=== PATIENT | male | born 1955 | race African-American/Black ===

== ENCOUNTER 2017-07-29 03:50 | Emergency (ER) | payer MEDICAID ==
[~2017-07-29] VITALS: Ht 172.7 cm; Wt 81.6 kg
[~2017-07-29 03:50] MED LIST: ALBU0.633 IH; ALBU2.5V13 NEB; ASPI-605 PO; ATEN50TA PO; ATOR40TA PO; GEMF600T3 PO; HYDR-548 PO; INSU10VI3 SQ; LOSA50TA3 PO; METF10002 PO; NICO1PAT28 TD; NITR0.4T48 SL
--- NOTE | 2017-07-29 04:15 | NUR ---
PT BBRA WITH C/O ABD PAIN X 36 HRS. PT STATES "NO BM X 36 HOURS WITH PAIN 10/10." PT AAOX4. SKIN WNL AND WARM TO TOUCH. RESP EVEN AND UNLABORED. NO S/S OF ACUTE DISTRESS NOTED. DISTENDED AND RIGID ABD NOTED. PT GUARDED STOMACH UPON PALPATION. URINE SPECIMEN COLLECTED. PT GOWNED AND PLACED ON MONITOR AND POX. AWAITING MD FOR EVAL.
[2017-07-29] MEDS ORDERED: MORPHINE SULFATE INJ 4 MG/ML DISP.SYRIN ONE (04:18)
[2017-07-29] MEDS ORDERED: MORPHINE SULFATE INJ 2 MG/ML DISP.SYRIN IV ONE (04:30)
[2017-07-29] MEDS ORDERED: IV NS 0.9% 500 ML BAG IV ONE (04:30)
--- NOTE | 2017-07-29 04:30 | NUR ---
PT TO CT
--- NOTE | 2017-07-29 04:35 | NUR ---
PULLED 8 MG OF MORPHINE FROM OMNICELL. 6 MG OF MORPHINE GIVEN. MEDICATION WASTE VERIFIED BY ENOC GIBSON.
--- NOTE | 2017-07-29 04:36 | NUR ---
ENOC FAIR PULLED TWO VIALS OF MORPHINE 4mg TO OBTAIN MORPHINE 6mg DOSE ORDERED BY PHYSICIAN. WITNESSED MANJULA WASTE 2mg OF MORPHINE. COUNT DISCREPANCY CORRECTED IN OMNICELL.
[2017-07-29 04:46] LABS: BASOPHILS % (AUTO) 0.4 % (0.0-2.0); EOSINOPHILS # (AUTO) 0.1 /CMM (0.0-0.7); EOSINOPHILS % (AUTO) 1.3 % (0.0-6.0); HEMATOCRIT 50 % (39-51); HEMOGLOBIN 16.7 g/dL (13.5-17.5); LYMPHOCYTES # (AUTO) 2.8 /CMM (0.8-4.8); MEAN CORPUSCULAR HEMOGLOBIN 31 PG (26.0-33.0); MEAN CORPUSCULAR HGB CONC 34 g/dl (31.0-36.0); MEAN CORPUSCULAR VOLUME 93 fL (80-96); MONOCYTES # (AUTO) 0.7 /CMM (0.1-1.30); MONOCYTES % (AUTO) 6.4 % (2.0-12.0); NEUTROPHILS # (AUTO) 7.4 /CMM (1.8-8.9); NEUTROPHILS % (AUTO) 66.9 % (43.0-81.0); PLATELET COUNT (AUTO) 320 /CMM (150-450); RDW COEFFICIENT OF VARIATION 14.3 (11.5-15.0); RED BLOOD CELL COUNT(AUTO) 5.35 MIL/uL (4.5-6.0); WHITE BLOOD COUNT (AUTO) 11.1 K/uL (4.3-11.0)
--- NOTE | 2017-07-29 04:48 | NUR ---
PT FROM CT
[2017-07-29 04:49] LABS: APPEARANCE,URINE CLEAR (CLEAR); BILIRUBIN,URINE NEGATIVE (NEGATIVE); BLOOD, URINE TRACE-INTA Ery/uL (NEGATIVE); COLOR,URINE YELLOW (YELLOW); KETONES,URINE NEGATIVE (NEGATIVE); LEUKOCYTE ESTERASE ,URINE NEGATIVE (NEGATIVE); NITRITE, URINE NEGATIVE (NEGATIVE); PROTEIN,URINE 2+ mg/dl (NEGATIVE); UGLUCOSE NEGATIVE (NEGATIVE); UROBILINOGEN,URINE 0.2 EU/dL (0.2)
[2017-07-29 05:05] LABS: ALANINE AMINOTRANSFERASE 29 U/L (12-78); ALBUMIN 4.1 g/dL (3.4-5.0); ALKALINE PHOSPHATASE 80 U/L (46-116); ASPARTATE AMINOTRANSFERASE 19 U/L (15-37); BILIRUBIN,DIRECT 0.1 mg/dL (0.0-0.2); BILIRUBIN,TOTAL 0.7 mg/dL (0.2-1.0); CALCIUM, SERUM 9.9 mg/dL (8.5-10.1); CARBON DIOXIDE 25 mmol/L (21-32); CHLORIDE 101 mmol/L (98-107); CREATININE 1.6 mg/dL (0.6-1.3); GLUCOSE 190 mg/dL (74-106); INR 0.96 (0.87-1.13); LIPASE 148 U/L (73-393); POTASSIUM 4.4 mmol/L (3.5-5.1); SODIUM SERUM 138 mmol/L (136-145); TOTAL PROTEIN, SERUM 8.6 g/dL (6.4-8.2); UREA NITROGEN, BLOOD 14 mg/dL (7-18)
[2017-07-29 05:07] LABS: BACTERIA,URINE None seen /HPF (None Seen); MUCUS,URINE Rare /LPF (None Seen); SQUAMOUS EPITHELIAL CELL,UR Few /HPF (None Seen); TROPONIN I < 0.017 ng/mL (0.00-0.056); WBC,URINE 0-2 /HPF (0-3)
--- NOTE | 2017-07-29 05:08 | NUR ---
Patient is resting comfortably in bed with eyes closed. Easily aroused. VSS
[2017-07-29] MEDS ORDERED: BISACODYL SUPP (10 MG) 10 MG/SUPP.RECT SUPP.RECT RC ONE ×2 (05:30)
--- NOTE | 2017-07-29 06:00 | NUR ---
pt states " i had a bm and feel much better". pt ready for dc
[2017-07-29 06:04] VITALS: BP 142/87
--- NOTE | 2017-07-29 06:06 | NUR ---
Patient discharged to home in stable condition. Written and verbal after care instructions and Rx given. Patient verbalizes understanding of instruction.IV removed. Catheter intact and site benign. Pressure and 4x4 applied to site. No bleeding noted.
== END 2017-07-29 06:06 | disposition home or self-care (01) ==
LOC: ER 03:52
DX: K59.00 Constipation, unspecified (principal); E11.51 Type 2 diabetes mellitus with diabetic peripheral angiopathy without gangrene; E78.5 Hyperlipidemia, unspecified; I10 Essential (primary) hypertension; I25.10 Atherosclerotic heart disease of native coronary artery without angina pectoris; F10.10 Alcohol abuse, uncomplicated; F17.200 Nicotine dependence, unspecified, uncomplicated; Z79.4 Long term (current) use of insulin; Z79.82 Long term (current) use of aspirin
CPT/HCPCS: 36415; 71045-TC; 80048-TC; 80076-TC; 81000-TC; 83690-TC; 84484-TC; 85025-TC; 85730-TC; A4606; J2270; J7030; J7040; Z7610

== ENCOUNTER 2018-01-18 17:32 | Emergency (ER) | payer BC, OTHER ==
[~2018-01-18] VITALS: Ht 167.6 cm; Wt 98.4 kg
[~2018-01-18 17:32] MED LIST changes: -METF10002 PO; +METF10004 PO
--- NOTE | 2018-01-18 17:35 | NUR ---
PT BIBRA FROM HOME TO ER BED 09. PT IS AAO, C/O GENERALIZED WEAKNESS AND DIZZINESS FOR 3 DAYS NOW AFTER GETTING DISCHARGE AT ANOTHER HOSPITAL. PT WAS ADMITTED FOR HIGH BLOOD PRESSURE. GOWNED AND PLACED ON MONITOR. AWAITING MD MEDEROS.
--- NOTE | 2018-01-18 18:00 | NUR ---
IV LINE STARTED BLOOD DRAWN AND SENT TO LAB.
--- NOTE | 2018-01-18 18:04 | NUR ---
CHANDA NORWOOD AT BEDSIDE FOR EVAL.
[2018-01-18 18:29] LABS: BASOPHILS # (AUTO) 0.1 /CMM (0.0-0.2); BASOPHILS % (AUTO) 1.3 % (0.0-2.0); EOSINOPHILS % (AUTO) 2.9 % (0.0-6.0); HEMATOCRIT 47 % (39-51); HEMOGLOBIN 15.8 g/dL (13.5-17.5); LYMPHOCYTES # (AUTO) 2.6 /CMM (0.8-4.8); LYMPHOCYTES % (AUTO) 45.4 % (20.0-44.0); MEAN CORPUSCULAR HEMOGLOBIN 31 PG (26.0-33.0); MEAN CORPUSCULAR HGB CONC 34 g/dl (31.0-36.0); MEAN CORPUSCULAR VOLUME 92 fL (80-96); MONOCYTES # (AUTO) 0.4 /CMM (0.1-1.30); MONOCYTES % (AUTO) 6.8 % (2.0-12.0); NEUTROPHILS # (AUTO) 2.5 /CMM (1.8-8.9); NEUTROPHILS % (AUTO) 43.6 % (43.0-81.0); PLATELET COUNT (AUTO) 274 /CMM (150-450); RDW COEFFICIENT OF VARIATION 13.1 (11.5-15.0); RED BLOOD CELL COUNT(AUTO) 5.11 MIL/uL (4.5-6.0); WHITE BLOOD COUNT (AUTO) 5.8 K/uL (4.3-11.0)
[2018-01-18] MEDS ORDERED: IV NS 0.9% 500 ML BAG IV ONE (18:30)
[2018-01-18 18:43] LABS: INR 0.87 (0.85-1.15)
[2018-01-18 18:46] LABS: ALANINE AMINOTRANSFERASE 37 U/L (12-78); ALBUMIN 3.5 g/dL (3.4-5.0); ALKALINE PHOSPHATASE 89 U/L (46-116); ASPARTATE AMINOTRANSFERASE 15 U/L (15-37); BILIRUBIN,DIRECT 0.1 mg/dL (0.0-0.2); BILIRUBIN,TOTAL 0.3 mg/dL (0.2-1.0); CALCIUM, SERUM 8.9 mg/dL (8.5-10.1); CARBON DIOXIDE 29 mmol/L (21-32); CHLORIDE 103 mmol/L (98-107); CREATININE 1.4 mg/dL (0.6-1.3); GLUCOSE 246 mg/dL (74-106); POTASSIUM 3.5 mmol/L (3.5-5.1); SODIUM SERUM 137 mmol/L (136-145); TOTAL PROTEIN, SERUM 7.4 g/dL (6.4-8.2)
[2018-01-18 18:57] LABS: UREA NITROGEN, BLOOD 10 mg/dL (7-18)
[2018-01-18 19:04] LABS: TROPONIN I < 0.017 ng/mL (0.00-0.056)
--- NOTE | 2018-01-18 19:13 | NUR ---
REPORT TO BARBI STUBBS FOR MARLEN.
[2018-01-18 20:05] LABS: BAND % (MANUAL) 3 % (0.0-5.0); LYMPHOCYTES % (MANUAL) 17 % (16-48); MONOCYTES % (MANUAL) 5 % (0-11.0); NEUTROPHILS % (MANUAL) 74 (42-76); REACTIVE LYMPHOCYTES 1 % (0-0)
[2018-01-18 20:29] LABS: APPEARANCE,URINE Clear (CLEAR); BILIRUBIN,URINE Negative (NEGATIVE); BLOOD, URINE Negative Ery/uL (NEGATIVE); COLOR,URINE Yellow (YELLOW); KETONES,URINE Negative (NEGATIVE); LEUKOCYTE ESTERASE ,URINE Negative (NEGATIVE); NITRITE, URINE Negative (NEGATIVE); PH,URINE 5.5 (5.0-8.0); UGLUCOSE 500 MG/DL mg/dL (NEGATIVE); UROBILINOGEN,URINE 0.2 EU/dL (0.2)
[2018-01-18 20:50] LABS: PROTEIN,URINE >300 mg/dl (NEGATIVE)
--- NOTE | 2018-01-18 20:54 | NUR ---
PT RESTING COMFORTABLY WITH EYES CLOSED. EASILY AROUSED. VSS. NAD. STABLE CONDITION
--- NOTE | 2018-01-18 21:48 | NUR ---
PT AMBULATED TO BATHROOM WITH STEADY GAIT. NAD.VSS. STABLE CONDITION
--- NOTE | 2018-01-18 22:05 | NUR ---
Patient discharged to home in stable condition. Written and verbal after care instructions given. Patient verbalizes understanding of instruction. IV removed. Catheter intact and site benign. Pressure and 4x4 applied to site. No bleeding noted. AMBULATED WITH STEADY GAIT UPON DC. INFORMED NOT TO OPERATE OR DRIVE HEAVY MACHINERY
[2018-01-18 22:06] VITALS: BP 127/78
== END 2018-01-18 22:07 | disposition home or self-care (01) ==
LOC: ER 17:33
DX: R42 Dizziness and giddiness (principal); I73.9 Peripheral vascular disease, unspecified; F17.200 Nicotine dependence, unspecified, uncomplicated; F10.10 Alcohol abuse, uncomplicated; I10 Essential (primary) hypertension; E78.5 Hyperlipidemia, unspecified; E11.9 Type 2 diabetes mellitus without complications; F41.9 Anxiety disorder, unspecified; Y90.9 Presence of alcohol in blood, level not specified; Z79.82 Long term (current) use of aspirin; Z79.4 Long term (current) use of insulin
CPT/HCPCS: 36415; 71045-TC; 80048-TC; 80076-TC; 81000-TC; 84484-TC; 85025-TC; 85730-TC; A4606; J7040; Z7610

== ENCOUNTER 2020-10-05 22:02 | Emergency (ER) | payer OTHER ==
[~2020-10-05] VITALS: Ht 167.6 cm; Wt 98.4 kg
[~2020-10-05 22:02] MED LIST changes: -GEMF600T3 PO; +GEMF600T90 PO; +HYDR-4354 PO; -HYDR-548 PO; +METF-442 PO; -METF10004 PO
--- NOTE | 2020-10-05 22:03 | NUR ---
BIBRA60 FROM HOME C/O CP, SOB AND HIGH BP READING ON SCENE (190/90) PER RA, BS 140. PMD RECENTLY SWITCHED METOPROLOL TO CARVEDILOL YESTERDAY, PT AAOX4, -SOB, NOT IN ACUTE DISTRES, VSS, PENDING ER PROVIDER GATITO
[2020-10-05 22:36] LABS: BASOPHILS # (AUTO) 0.1 /CMM (0.0-0.2); BASOPHILS % (AUTO) 0.8 % (0.0-2.0); EOSINOPHILS % (AUTO) 2.7 % (0.0-6.0); HEMATOCRIT 44 % (39-51); HEMOGLOBIN 14.6 g/dL (13.5-17.5); LYMPHOCYTES # (AUTO) 2.6 /CMM (0.8-4.8); LYMPHOCYTES % (AUTO) 36.9 % (20.0-44.0); MEAN CORPUSCULAR HGB CONC 33 g/dl (31.0-36.0); MEAN CORPUSCULAR VOLUME 95 fL (80-96); MONOCYTES # (AUTO) 0.6 /CMM (0.1-1.30); MONOCYTES % (AUTO) 8.8 % (2.0-12.0); NEUTROPHILS # (AUTO) 3.5 /CMM (1.8-8.9); NEUTROPHILS % (AUTO) 50.8 % (43.0-81.0); PLATELET COUNT (AUTO) 322 /CMM (150-450); RED BLOOD CELL COUNT(AUTO) 4.62 MIL/uL (4.5-6.0)
[2020-10-05 22:46] LABS: CALCIUM, SERUM 8.6 mg/dL (8.5-10.1); CARBON DIOXIDE 32 mmol/L (21-32); CHLORIDE 102 mmol/L (98-107); CREATININE 1.8 mg/dL (0.6-1.3); GLUCOSE 133 mg/dL (74-106); POTASSIUM 3.9 mmol/L (3.5-5.1); SODIUM SERUM 138 mmol/L (136-145); UREA NITROGEN, BLOOD 16 mg/dL (7-18)
[2020-10-05 22:58] LABS: ALANINE AMINOTRANSFERASE 21 U/L (12-78); ALBUMIN 3.2 g/dL (3.4-5.0); ALKALINE PHOSPHATASE 60 U/L (46-116); ASPARTATE AMINOTRANSFERASE 18 U/L (15-37); B-TYPE NATRIURETIC PEPTIDE 69 PG/ML (0-125); BILIRUBIN,DIRECT 0.1 mg/dL (0.0-0.2); BILIRUBIN,TOTAL 0.4 mg/dL (0.2-1.0); TOTAL PROTEIN, SERUM 7.1 g/dL (6.4-8.2)
[2020-10-06 00:13] VITALS: BP 154/82
--- NOTE | 2020-10-06 00:13 | NUR ---
Patient discharged to home in stable condition. Written and verbal after care instructions given. Patient verbalizes understanding of instruction. IV removed. Catheter intact and site benign. Pressure and 4x4 applied to site. No bleeding noted.
== END 2020-10-06 00:13 | disposition home or self-care (01) ==
LOC: ER 22:02
DX: I10 Essential (primary) hypertension (principal); T50.905A Adverse effect of unspecified drugs, medicaments and biological substances, initial encounter; R06.00 Dyspnea, unspecified; E78.5 Hyperlipidemia, unspecified; E11.9 Type 2 diabetes mellitus without complications; F17.200 Nicotine dependence, unspecified, uncomplicated; Z86.73 Personal history of transient ischemic attack (TIA), and cerebral infarction without residual deficits; Z98.890 Other specified postprocedural states; Z79.899 Other long term (current) drug therapy; Z79.4 Long term (current) use of insulin; Z79.82 Long term (current) use of aspirin; Y92.89 Other specified places as the place of occurrence of the external cause
CPT/HCPCS: 36415; 71045-TC; 80048-TC; 80076-TC; 83880; 84484-TC; 85025-TC; 85730-TC

== ENCOUNTER 2020-11-01 14:15 | Inpatient (IN) | payer OTHER ==
[~2020-11-01] VITALS: Ht 167.6 cm; Wt 122.5 kg
[2020-11-01] MEDS ORDERED: NITROGLYCERIN 0.4 MG/TAB BOTTLE SL ONE (14:30)
[2020-11-01] MEDS ORDERED: ASPIRIN 325 MG TABLET PO ONE (14:30)
--- NOTE | 2020-11-01 14:30 | NUR ---
THE PATIENT BIB HIS FRIEND FOR C/O DIZZINESS AND CHEST PRESSURE SINCE 3 DAYS AGO, BILATERAL LEG PAIN SINCE HE FELL DOWN 3 DAYS AGO WHILE DIZZY. THE PATIENT RATES PAINS 10/10. IN ROOM AIR AND DENIES SOB. RESPIRATION REGULAR AND UNLABORED. ATTACHED TO THE MONITOR.
[2020-11-01] MEDS ORDERED: ASPIRIN 325 MG TABLET ONE (14:36)
[2020-11-01] MEDS ORDERED: NITROGLYCERIN 0.4 MG/TAB BOTTLE ONE (14:36)
[2020-11-01 14:38] LABS: BASOPHILS # (AUTO) 0.1 /CMM (0.0-0.2); EOSINOPHILS % (AUTO) 1.6 % (0.0-6.0); HEMATOCRIT 44 % (39-51); HEMOGLOBIN 14.5 g/dL (13.5-17.5); LYMPHOCYTES # (AUTO) 2.2 /CMM (0.8-4.8); LYMPHOCYTES % (AUTO) 29.4 % (20.0-44.0); MEAN CORPUSCULAR HGB CONC 33 g/dl (31.0-36.0); MEAN CORPUSCULAR VOLUME 95 fL (80-96); MONOCYTES # (AUTO) 0.6 /CMM (0.1-1.30); NEUTROPHILS # (AUTO) 4.5 /CMM (1.8-8.9); PLATELET COUNT (AUTO) 316 /CMM (150-450); RED BLOOD CELL COUNT(AUTO) 4.62 MIL/uL (4.5-6.0); WHITE BLOOD COUNT (AUTO) 7.5 K/uL (4.3-11.0)
[2020-11-01 14:45] LABS: CALCIUM, SERUM 8.9 mg/dL (8.5-10.1); CARBON DIOXIDE 33 mmol/L (21-32); CHLORIDE 98 mmol/L (98-107); CREATININE 1.9 mg/dL (0.6-1.3); GLUCOSE 204 mg/dL (74-106); SODIUM SERUM 136 mmol/L (136-145); UREA NITROGEN, BLOOD 19 mg/dL (7-18)
[2020-11-01 14:50] LABS: ALANINE AMINOTRANSFERASE 20 U/L (12-78); ALBUMIN 3.5 g/dL (3.4-5.0); ALKALINE PHOSPHATASE 72 U/L (46-116); ASPARTATE AMINOTRANSFERASE 16 U/L (15-37); BILIRUBIN,DIRECT 0.1 mg/dL (0.0-0.2); BILIRUBIN,TOTAL 0.4 mg/dL (0.2-1.0); TOTAL PROTEIN, SERUM 7.8 g/dL (6.4-8.2)
[2020-11-01] MEDS ORDERED: BACL10TA PO (15:16)
[2020-11-01] MEDS ORDERED: DILT90CA PO (15:16)
[2020-11-01] MEDS ORDERED: TERA5CAP7 PO (15:16)
[2020-11-01] MEDS ORDERED: METO-358 PO (15:16)
[2020-11-01] MEDS ORDERED: SERT-439 PO (15:16)
[2020-11-01] MEDS ORDERED: OMEP40CA13 PO (15:16)
[2020-11-01] MEDS ORDERED: ALLO100T PO (15:16)
--- NOTE | 2020-11-01 18:30 | NUR ---
BAND TEACHER NOTE RECEIVED REPORT FROM ENOC QUIÑONEZ. PATIENT WAS BROUGHT UP VIA GURNEY. BP 123/77 DE 80 SA02 96%. ON ROOM AIR TOLERATING WELL. IV ACCESS ON R AC #20 G, INTACT. TELE READING SHOWS SR 80. PATIENT WAS ASKING FOR PAIN MED HE WAS EXPERIENCING PRESSURE ON HIS CHEST. PT HAS A NITROGLYCERIN PILLS IN THE POCKET AND HE SAID HE WILL ONLY SURRENDER IT ONCE HE'S GOT THE PAIN MED. HE ALSO HAVE CARVEDILOL, PT GAVE AND WILL ENDORSE IT TO NIGHT NURSE. KNIFE WAS SECURED IN THE SAFETY DEPOSIT BOX. SAFETY MEASURES MAINTAINED. BED IN LOWEST POSITION, BRAKES LOCKED. SIDE RAILS UP X2. CALL LIGHT WITHIN REACH. WILL CONTINUE PLAN OF CARE.
--- NOTE | 2020-11-01 18:30 | NUR ---
THE PATIENT IS TRANSFERED TO ASSIGNED BED IN STABLE CONDITION AND PER POLICY.
--- NOTE | 2020-11-01 19:45 | NUR ---
CQ DEVELOPER: CONTINUITY OF CARE 19:30 Patient in bed, awake, angry wants to go home, per patient he will leave hosp when his friend arrive, he will take his medication at home. Explained to patient risk and benefits of continued hospitalization. Patient insisted to leave, wait for the friend and go home. Informed Juan/HOSPICE CARE TRANSITIONS COORDINATOR, aware of the patient needs and request. Importance of staying in the the hosp explained to patient and leaving against medication advice discussed to patient.
[2020-11-01 20:00] VITALS: BP 145/67
--- NOTE | 2020-11-01 21:51 | NUR ---
JEWEL HOLE GAUGER: DISCHARGE AMA 20:40 Patient refusing to stay in the hosp. Insisting to go home to take his home medication, stated he will go home to take his CBD and will come to the the hosp. after taking it. Education provided to patient, discussed continued hospitalization and leaving hosp against medical advice with length of time. Patient still insisted to go home, refused to sign AMA form witnessed by Rodri/RN. IV peripheral line removed. All personal belongings send with the patient upon dc. Informed Juan/VAN.
== END 2020-11-01 20:40 | disposition left against medical advice (07) | DRG 203 ==
LOC: ER 14:23 → TELE 18:09
PROVIDERS: ADMIT Hospitalist; ATTEND Hospitalist
DX: R07.9 Chest pain, unspecified (principal); E11.51 Type 2 diabetes mellitus with diabetic peripheral angiopathy without gangrene; E78.5 Hyperlipidemia, unspecified; I10 Essential (primary) hypertension; Z86.73 Personal history of transient ischemic attack (TIA), and cerebral infarction without residual deficits; K46.9 Unspecified abdominal hernia without obstruction or gangrene; Z79.51 Long term (current) use of inhaled steroids; Z79.899 Other long term (current) drug therapy; Z79.4 Long term (current) use of insulin; Z79.82 Long term (current) use of aspirin
CPT/HCPCS: 36415; 71045-TC; 80048-TC; 80076-TC; 84484-TC; 85025-TC; 87081-TC; C9803; G0378

== ENCOUNTER 2024-11-23 14:01 | Emergency (ER) | payer OTHER ==
[~2024-11-23] VITALS: Ht 182.9 cm; Wt 88.0 kg
[~2024-11-23 14:01] MED LIST changes: -ALBU2.5V13 NEB; +ALLO100T PO; -ATEN50TA PO; -ATOR40TA PO; +BACL10TA PO; +DILT90CA PO; -GEMF600T90 PO; -INSU10VI3 SQ; -METF-442 PO; +METO-358 PO; -NICO1PAT28 TD; -NITR0.4T48 SL; +OMEP40CA21 PO; +SERT100T12 PO; +TERA5CAP7 PO
[2024-11-23] MEDS: IV NS 0.9% 1,000 ML BAG IV ONE (15:09)
[2024-11-23 15:11] LABS: BASOPHILS # (AUTO) 0.1 K/uL (0.0-0.2); BASOPHILS % (AUTO) 0.7 % (0.0-2.0); EOSINOPHILS # (AUTO) 0.2 K/uL (0.0-0.7); EOSINOPHILS % (AUTO) 2.2 % (0.0-6.0); HEMATOCRIT 42 % (39-51); HEMOGLOBIN 13.8 g/dL (13.5-17.5); LYMPHOCYTES # (AUTO) 2.1 K/uL (0.8-4.8); LYMPHOCYTES % (AUTO) 26.8 % (20.0-44.0); MEAN CORPUSCULAR HEMOGLOBIN 32 PG (26.0-33.0); MEAN CORPUSCULAR HGB CONC 33 g/dl (31.0-36.0); MEAN CORPUSCULAR VOLUME 95 fL (80-96); MONOCYTES # (AUTO) 0.6 K/uL (0.1-1.30); MONOCYTES % (AUTO) 8.2 % (2.0-12.0); NEUTROPHILS # (AUTO) 4.8 K/uL (1.8-8.9); NEUTROPHILS % (AUTO) 62.1 % (43.0-81.0); PLATELET COUNT (AUTO) 350 K/uL (150-450); RED BLOOD CELL COUNT(AUTO) 4.36 MIL/uL (4.5-6.0); RED CELL DISTRIBUTION WIDTH 13.7 % (11.5-15.0); WHITE BLOOD COUNT (AUTO) 7.7 K/uL (4.3-11.0)
[2024-11-23 15:19] LABS: CALCIUM, SERUM 9.3 mg/dL (8.5-10.1); CARBON DIOXIDE 31 mmol/L (21-32); CHLORIDE 103 mmol/L (98-107); CREATININE 3.1 mg/dL (0.6-1.3); GLUCOSE 203 mg/dL (74-106); POTASSIUM 4.4 mmol/L (3.5-5.1); SODIUM SERUM 139 mmol/L (136-145); UREA NITROGEN, BLOOD 28 mg/dL (7-18)
[2024-11-23 15:25] LABS: ALANINE AMINOTRANSFERASE 15 U/L (12-78); ALBUMIN 3.1 g/dL (3.4-5.0); ALKALINE PHOSPHATASE 59 U/L (46-116); ASPARTATE AMINOTRANSFERASE 21 U/L (15-37); BILIRUBIN,DIRECT 0.1 mg/dL (0.0-0.2); BILIRUBIN,TOTAL 0.6 mg/dL (0.2-1.0); TOTAL PROTEIN, SERUM 7.7 g/dL (6.4-8.2)
[2024-11-23 15:27] LABS: APPEARANCE,URINE CLEAR (CLEAR); BILIRUBIN,URINE Negative (NEGATIVE); BLOOD, URINE Small Ery/uL (NEGATIVE); COLOR,URINE YELLOW (YELLOW); KETONES,URINE Negative (NEGATIVE); LEUKOCYTE ESTERASE ,URINE Negative (NEGATIVE); PROTEIN,URINE >=300 mg/dl (NEGATIVE); UGLUCOSE 100 MG/DL mg/dL (NEGATIVE); UROBILINOGEN,URINE 0.2 EU/dL (0.2)
[2024-11-23 15:30] LABS: NITRITE, URINE NEGATIVE (NEGATIVE)
[2024-11-23 15:32] LABS: ADD URINE CULTURE NO; BACTERIA,URINE Rare /HPF (None Seen); HYALINE CASTS, URINE Few /LPF (None Seen); SQUAMOUS EPITHELIAL CELL,UR None Seen /HPF (None Seen); WBC,URINE 0-2 /HPF (0-3)
[2024-11-23] MEDS ORDERED: MECLIZINE HCL 25 MG TABLET ONE (16:16)
[2024-11-23] MEDS: MECLIZINE HCL 12.5 MG TABLET PO ONE (16:20)
[2024-11-23 23:30] VITALS: BP 128/61; TEMP 98.1; O2SAT 97
== END 2024-11-23 23:31 | disposition home or self-care (01) ==
LOC: ER 14:03
DX: R53.1 Weakness (principal); R42 Dizziness and giddiness; R06.02 Shortness of breath; I12.9 Hypertensive chronic kidney disease with stage 1 through stage 4 chronic kidney disease, or unspecified chronic kidney disease; E11.22 Type 2 diabetes mellitus with diabetic chronic kidney disease; E11.51 Type 2 diabetes mellitus with diabetic peripheral angiopathy without gangrene; E78.5 Hyperlipidemia, unspecified; F17.200 Nicotine dependence, unspecified, uncomplicated; J44.9 Chronic obstructive pulmonary disease, unspecified; Z79.82 Long term (current) use of aspirin; Z79.899 Other long term (current) drug therapy; Z86.73 Personal history of transient ischemic attack (TIA), and cerebral infarction without residual deficits; Z60.2 Problems related to living alone
CPT/HCPCS: 36415; 70450-TC; 71045-TC; 80048-TC; 80076-TC; 81001; 82962-TC; 84484-TC; 85025-TC; 85378-TC; J8597